=== PATIENT | female | born 1955 | race Caucasian/White ===

== ENCOUNTER 2025-03-07 18:13 | Inpatient (IN) | payer MEDICARE, MEDICAID ==
[~2025-03-07] VITALS: Ht 167.6 cm; Wt 56.9 kg
[2025-03-07 20:42] LABS: BASO # 0.0 10^3/uL (0.0-0.2); BASO % 0.4 % (0.0-1.0); EOS # 0.0 10^3/uL (0.0-0.5); EOS % 0.6 % (0.0-3.0); LYMPH # 1.1 10^3/uL (1.5-5.0); LYMPH % 21.0 % (24.0-44.0); MONO # 0.5 10^3/uL (0.0-0.8); MONO % 10.3 % (2.0-8.0); NEUTROPHILS # 3.5 10^3/uL (1.5-8.5); NEUTROPHILS % 67.1 % (36.0-66.0); PLATELET COUNT, AUTOMATED 162 10^3/uL (150-450)
[2025-03-07 21:15] LABS: CALCIUM LEVEL 8.2 MG/DL (8.3-10.6); CARBON DIOXIDE LEVEL 27.0 MMOL/L (20-31); CHLORIDE LEVEL 108.0 MMOL/L (98-107); CREATININE FOR GFR 0.82 MG/DL (0.55-1.30); GLOMERULAR FILTRATION RATE 76.0 (>39); POTASSIUM SERUM 5.9 MMOL/L (3.5-5.1); SODIUM LEVEL 145.0 MMOL/L (136-145)
[2025-03-07 21:25] LABS: INR 0.99
[2025-03-08] MEDS: UNRESOLVED CLARIFICATION ENTRY XX STA (00:14)
[2025-03-08 03:15] VITALS: TEMP 97.5
[2025-03-08] MEDS ORDERED: ACETAMINOPHEN 325 MG TAB PO PRN (07:35)
[2025-03-08 07:57] VITALS: BP 129/67
[2025-03-08 08:00] LABS: BASO # 0.0 10^3/uL (0.0-0.2); BASO % 0.6 % (0.0-1.0); EOS # 0.0 10^3/uL (0.0-0.5); EOS % 0.0 % (0.0-3.0); LYMPH # 0.9 10^3/uL (1.5-5.0); LYMPH % 17.4 % (24.0-44.0); MONO # 0.8 10^3/uL (0.0-0.8); MONO % 16.4 % (2.0-8.0); NEUTROPHILS # 3.2 10^3/uL (1.5-8.5); NEUTROPHILS % 65.2 % (36.0-66.0); PLATELET COUNT, AUTOMATED 150 10^3/uL (150-450)
[2025-03-08 08:34] LABS: CALCIUM LEVEL 8.5 MG/DL (8.3-10.6); CARBON DIOXIDE LEVEL 28 MMOL/L (20-31); CHLORIDE LEVEL 107 MMOL/L (98-107); CREATININE FOR GFR 0.69 MG/DL (0.55-1.30); GLOMERULAR FILTRATION RATE > 90.0 (>39); POTASSIUM SERUM 3.2 MMOL/L (3.5-5.1); SODIUM LEVEL 146 MMOL/L (136-145)
[2025-03-08] MEDS ORDERED: POTASSIUM CHLORIDE 10MEQ SR TABLET PO ONE (08:45)
[2025-03-08] MEDS: D5W/0.45% SODIUM CHLORIDE 1,000 ML IV SCH (08:45)
[2025-03-08] MEDS ORDERED: ENOXAPARIN 40 MG/0.4 ML SYRINGE (J1650 PER 10MG) SC SCH (09:00)
[2025-03-08] MEDS ORDERED: SCOPOLAMINE 1MG TRANSDERMAL PATCH TOP PRN (09:40)
[2025-03-08] MEDS ORDERED: MORPHINE 10 MG/0.5 ML ORAL CONCENTRATE SOLUTION U/D SL PRN ×2 (09:40→11:20)
[2025-03-08] MEDS ORDERED: LORazepam 1 MG TAB PO PRN ×2 (09:40→11:20)
[2025-03-08 11:00] VITALS: O2SAT 97
[2025-03-08] MEDS ORDERED: MORP1SOL5 PO ×2 (11:03→12:40)
[2025-03-08] MEDS ORDERED: ATIV1TAB10 PO (11:03)
[2025-03-08] MEDS ORDERED: HYOS125TA PO (11:03)
[2025-03-08] MEDS ORDERED: POLYVINYL ALCOHOL OPHTH SOLN 15ML (LIQUITEARS) OU PRN (11:20)
[2025-03-08] MEDS ORDERED: HYOSCYAMINE SULFATE 0.125 MG SUBL TABLET SL PRN (11:20)
[2025-03-08] MEDS ORDERED: OLANZapine ORAL DISINTEGRATING TAB 5MG PO PRN (11:20)
[2025-03-08] MEDS ORDERED: ATROPINE SULFATE 1% OPHTH SOLN 2 ML BTL SL PRN (11:20)
[2025-03-08] MEDS ORDERED: SALIVA SUBSTITUTE BTL MT PRN (11:20)
[2025-03-08] MEDS ORDERED: OLAN5ZYD PO (12:40)
[2025-03-08] MEDS ORDERED: ATIV1TAB7 PO (12:40)
[2025-03-08] MEDS ORDERED: MOUKOT60 MT (12:48)
[2025-03-08] MEDS ORDERED: MORPHINE 10 MG/0.5 ML ORAL CONCENTRATE SOLUTION U/D SL SCH (13:00)
[2025-03-08] MEDS ORDERED: LORazepam 1 MG TAB PO SCH (14:00)
== END 2025-03-08 14:24 | DRG 536 ==
LOC: M ED 18:13 → EDBD 18:13 → M ED INP 03-08 00:09
PROVIDERS: ADMIT Student in an Organized Health Care Education/Training Program; ATTEND Internal Medicine
DX: S72.032A Displaced midcervical fracture of left femur, initial encounter for closed fracture (principal); E87.0 Hyperosmolality and hypernatremia; F03.C11 Unspecified dementia, severe, with agitation; D53.9 Nutritional anemia, unspecified; E87.6 Hypokalemia; I25.2 Old myocardial infarction; E04.2 Nontoxic multinodular goiter; R13.10 Dysphagia, unspecified; F32.A Depression, unspecified; F41.9 Anxiety disorder, unspecified; G47.00 Insomnia, unspecified; R00.0 Tachycardia, unspecified; Z51.5 Encounter for palliative care; Z66 Do not resuscitate; Z79.01 Long term (current) use of anticoagulants; Z79.899 Other long term (current) drug therapy; W19.XXXA Unspecified fall, initial encounter; Y93.9 Activity, unspecified; Y99.8 Other external cause status; Y92.129 Unspecified place in nursing home as the place of occurrence of the external cause